=== PATIENT | male | born 2005 | race Caucasian/White ===

== ENCOUNTER 2024-04-23 12:45 | Emergency (ER) | payer OTHER, SELFPAY ==
[2024-04-23 12:54] VITALS: BP 119/65; PULSE 58; RESP 20; TEMP 36.3; O2SAT 100
--- NOTE | 2024-04-23 14:16 | ED.GENADULT ---
HPI - General Adult General Chief complaint: Head Injury Stated complaint: head injury Time Seen by Provider: 04/23/24 14:16 Source: patient Mode of arrival: ambulatory Limitations: no limitations History of Present Illness HPI narrative: This is a 18-year-old male who presents to the ED for chief complaint of concussion like symptoms after hockey injury yesterday. Patient reports that he got hit hard on the left side of his head. States that this caused him to go down to the ground but he did not pass out. Reports that he was able to skate over to the bench intake breather. States that he has had a little bit of headache and nausea but the symptoms are starting to improve today. States he was able to go to work. He would like to get back to practice and playing but has trialed soon for the school team. Denies any new numbness, weakness, neck pain, syncope, vomiting, falls or dizziness. Related Data Home Medications Medication Instructions Recorded Confirmed No Home Medications 08/09/19 08/09/19 Allergies Allergy/AdvReac Type Severity Reaction Status Date / Time No Known Allergies Allergy Verified 08/09/19 16:58 Review of Systems Review of Systems: All systems as dictated in HPI Exam Narrative: GENERAL: Well-appearing, well-nourished, and in no acute distress. HEAD: Normocephalic, atraumatic. EYES: PERRLA and EOMI. ENT: Nares clear, no rhinorrhea or epistaxis. Mucous membranes moist. Oropharynx without tonsillar hypertrophy exudate or other lesions. NECK: Supple. No adenopathy or masses. CHEST: No respiratory distress. Clear to auscultation. No wheezes rales or rhonchi HEART: Regular rate and rhythm. No murmur heard. Normal peripheral pulses. ABDOMEN: Soft, nontender, nondistended, normal active bowel sounds. MSK: Normal range of motion. No edema. SKIN: Warm, dry, no rash. NEURO: Alert and oriented x4. No focal deficits. Coordination intact. Ambulatory without difficulty. PSYCH: Normal mood and affect. Course Vital Signs Vital signs: Vital Signs Temperature 97.4 F L 04/23/24 12:54 Pulse Rate 58 L 04/23/24 12:54 Respiratory Rate 20 04/23/24 12:54 Blood Pressure 119/65 04/23/24 12:54 Pulse Oximetry 100 04/23/24 12:54 Oxygen Delivery Room Air 04/23/24 12:54 Temperature 97.4 F L 04/23/24 12:54 Pulse Rate 58 L 04/23/24 12:54 Respiratory Rate 20 04/23/24 12:54 Blood Pressure 119/65 04/23/24 12:54 Pulse Oximetry 100 04/23/24 12:54 Oxygen Delivery Room Air 04/23/24 12:54 Medical Decision Making MDM Narrative Medical decision making narrative: This is a 18-year-old male who presents to the ED for chief complaint of head injury that occurred at hockey practice yesterday. Vitals are normal. Neurologic exam and physical exam were benign. Nexus criteria for CT scan is grossly negative. No need for advanced imaging at this time. Symptoms are consistent with minor concussion due to head injury. Concussion instructions were discussed. Pt will be discharged in stable condition. Return precautions given and supportive measures discussed. Pt is understanding and agreeable with plan for discharge and follow-up with PCP. NEXUS Head CT Instrument from [employer] on 04/23/2024 All calculations should be rechecked by clinician prior to use RESULT SUMMARY: Low risk of significant intracranial injuries CT not necessary INPUTS: Evidence of significant skull fracture ?> 0 = No Scalp hematoma ?> 0 = No Neurologic deficit ?> 0 = No Altered level of alertness ?> 0 = No Abnormal behavior ?> 0 = No Coagulopathy ?> 0 = No Persistent vomiting ?> 0 = No Age >=5 years ?> 0 = No Vital Signs Vital Signs: Vital Signs Temperature 97.4 F L 04/23/24 12:54 Pulse Rate 58 L 04/23/24 12:54 Respiratory Rate 20 04/23/24 12:54 Blood Pressure 119/65 04/23/24 12:54 Pulse Oximetry 100 04/23/24 12:54 Oxygen Delivery Room Air 04/23/24 12:54
== END 2024-04-23 14:25 | disposition home or self-care (01) ==
LOC: ANHED 14:20
PROVIDERS: Emergency Provider Physician Assistant; PCP Pediatrics
DX: S09.90XA Unspecified injury of head, initial encounter (principal); W22.8XXA Striking against or struck by other objects, initial encounter; Y93.22 Activity, ice hockey
CPT/HCPCS: 99283

== ENCOUNTER 2024-09-19 12:16 | Emergency (ER) | payer OTHER, SELFPAY ==
[2024-09-19 12:24] VITALS: BP 135/76; PULSE 82; RESP 16; TEMP 36.2; O2SAT 99
--- NOTE | 2024-09-19 13:10 | ED_ITS ---
HPI - General Adult General Chief complaint: Wound/Laceration Stated complaint: laceration R. thumb Time Seen by Provider: 09/19/24 12:44 History of Present Illness HPI narrative: 18-year-old male present to the emergency department for evaluation for laceration to his right thumb. Patient reports he dropped an ice skate and tried to catch it and this did result in a laceration to his right thumb. This happened approximately 930 last night. Patient presents to the emergency department with his mother. Related Data Home Medications ?Medication ?Instructions ?Recorded ?Confirmed ?Last Taken ?Type No Home Medications 08/09/19 08/09/19 Unknown History Allergies Allergy/AdvReac Type Severity Reaction Status Date / Time No Known Allergies Allergy Verified 09/19/24 12:17 Review of Systems Review of Systems: All systems reviewed & are unremarkable except as noted in HPI and below Exam Narrative: APPEARANCE: Well appearing, no pain, no distress, well-nourished. HEAD: normocephalic, atraumatic. EYES: PERRLA/EOMI, conjunctivae clear. NOSE: Normal no drainage EARS:TMS clear with good light reflex. THROAT: Pharynx clear, no exudate. NECK: Supple. No adenopathy, no masses. RESPIRATORY: Airway patent, respirations nonlabored. Clear to auscultation bilaterally, no rales, rhonchi, wheezing. CARDIOVASCULAR: Regular rate and rhythm without murmurs rubs or gallops. ABDOMINAL: Soft, nontender, nondistended, normal bowel sounds MUSCULOSKELETAL: Moves all extremities. Strength/ROM intact, No edema, No calf tenderness. NEURO: Alert. Cranial nerves II through XII intact. grossly intact SKIN: avulsion laceration to right thumb Course Vital Signs Vital signs: Vital Signs Temperature 97.2 F L 09/19/24 12:24 Pulse Rate 82 09/19/24 12:24 Respiratory Rate 16 09/19/24 12:24 Blood Pressure 135/76 09/19/24 12:24 Pulse Oximetry 99 09/19/24 12:24 Temperature 97.2 F L 09/19/24 12:24 Pulse Rate 82 09/19/24 12:24 Respiratory Rate 16 09/19/24 12:24 Blood Pressure 135/76 09/19/24 12:24 Pulse Oximetry 99 09/19/24 12:24 Medical Decision Making [facility] Narrative Medical decision making narrative: 18-year-old male present to the emergency department for evaluation for a laceration to his right thumb. Laceration was an avulsion and did not require suture repair. Surgicel and hemostatic dressing was placed. Patient family were updated on the treatment plan and importance for follow-up. All questions concerns were addressed and questions and wound care were addressed. Patient and family are comfortable the plan for discharge and close follow-up. Differential Diagnosis Differential Diagnosis: Tendon injury, laceration, avulsion laceration Vital Signs Vital Signs: Vital Signs Temperature 97.2 F L 09/19/24 12:24 Pulse Rate 82 09/19/24 12:24 Respiratory Rate 16 09/19/24 12:24 Blood Pressure 135/76 09/19/24 12:24 Pulse Oximetry 99 09/19/24 12:24 Temperature 97.2 F L 09/19/24 12:24 Pulse Rate 82 09/19/24 12:24 Respiratory Rate 16 09/19/24 12:24 Blood Pressure 135/76 09/19/24 12:24 Pulse Oximetry 99 09/19/24 12:24 Discharge Plan Discharge Clinical Impression: Avulsion of skin Patient Disposition: Home, Self-Care Condition: Stable Instructions: Antibiotic Form, Skin Avulsion (ED) Additional Instructions: Wound care as directed. Keep the dressing in place for 24 hours. Have close follow-up with your primary care physician. If you have any worsening symptoms and please call or return to the emergency department. Patient Language: Frisian Prescriptions: No Action No Home Medications amoxicillin 875 mg tablet 875 mg PO Q12H Qty: 10 0RF Follow-up/Referrals: PHYSICIAN,DIRECTOR OF OUTREACH [Non-Staff] -
[2024-09-19] MEDS: LIDOCAINE 1% LOCAL INJ 10 ML VIAL INFILTRATE (13:30)
--- OUTSIDE RECORDS SUMMARY | 2024-09-29 00:35 | XMS_ITS | Encounter Summary ---
Author Organization [facility] Address [facility] [facility] [address] Care Team Providers Care Claim Analyst Name Role Phone Marline Brooks MD Primary Care Provider Reason for Visit * PT/OT/ST (Routine) - Closed Specialty Diagnoses / Procedures Referred By Contac t Referred To Contact Occupational Therapy Diagnoses Feeding difficulties and mismanagement feeding difficulties Procedures NE OCCUPATIONAL THERAPY EVALUATION ot Marline Rod MD [address] [place] [address] Belgica Alvarez OT Referral ID Status Reason Start Date Expiration Date Visits Re quested Visits Authorized [id number] Closed 03/13/2012 09/09/2012 1 1 Encounter Details Date Type Department Care Team (Late st Contact Info) Description 03/13/2012 9:59 AM CDT - 03/13/2012 11:59 PM T Hospital Encounter [facility] - OT [address] [place] [address] Mraline Brooks MD [address] [place] [address] Belgica Alvarez OT Discharge Disposition: Home or Self Care Social History Tobacco Use Types Packs/Day Years Used Date Smoking Tobacco: Never Assessed Sex and Gender Information Value Date Recorded Sex Assigned at Not on file Gender Identity Not on file Sexual Orientation Not on file documented as of this encounter Consult Notes * Belgica Arndt, JAQUI - 03/13/2012 11:53 AM CDT Occupational Therapy Assessment Date:03/13/2012 Patient: Juliocesar Gillette Date of : 2005 Chronological Age: 6 y.o. 4 m.o. Current Services Received: Juliocesar is a 6 y.o. male who presents for an occupational therapy evaluation with his mother. He receives no services at school Parental Concerns: Juliocesar has previously been seen by an occupational therapist for sensory concernswhen he was younger. He previously disliked tags in his shirt, difficult with receiving a haircut, messy play and diet. His mother reports these have all resolved with time except his diet. He continues to demonstrate aversion to new or unfamiliar foods.His diet includes pop tarts, toast, hotdogs, pizza (very specific to which kind he will eat), chicken nuggets, red grapes, apples, and daniels. Hismother states that his diet is the most concerning due to him being a growing child requiring more nutritious food than listed above. Cooperation: Age Appropriate Verbal Praise Warm-Up Time Rewards Comments: Juliocesar was cooperative throughout evaluation with encouragement and positive reinforcementfor trying foods. Primary Method of Communication: Verbal Assistive Devices: None Standardized Questionnaires SENSORY PROFILE 3-10 YRS, 11 MOS Factor Factor Raw Score Total Differences Sensory Seeking 72/85 Typical Performance Emotionally Reactive 53/80 Probable Difference Low Endurance/Tone 45/45 Typical Performance Oral Sensory Sensitivity 21/45 Definite Difference Inattention/Distractibility 29/35 Typical Performance Poor Registration 39/40 Typical Performance Sensory Sensitivity 20/20 Typical Performance Sedentary 20/20 Probable Difference Fine Motor/Perceptual 14/15 Typical Performance Sensory Inputs Section Raw Score Total Differences Auditory Processing 31/40 Typical Performance Visual Processing 43/45 Probable Difference Vestibular Processing 52/55 Typical Performance Touch Processing 85/90 Typical Performance Multisensory Processing 33/35 Typical Performance Oral Sensory Processing 34/60 Definite Difference Juliocesar's mother filled out the Sensory Profile which is suggesting that Juliocesar has a definite difference with his oral sensory sensitivity and oral sensory processing. This can make it difficult for Juliocesar to try new foods with a variety of unfamiliar textures. He will often avoid trying these foods by declining them altogether with few attempts to try. Individual occupational therapy sessions can benefit Juliocesar by introducing a variety of new textures in a controlled environment. This can then be transitioned into working on trying new foods at home in his familiar environment. Feeding History: Duration: Juliocesar has had difficulty increasing the variety in his diet for several years. His parents hoped it would be something that he would grow out of but Juliocesar has not demonstrated any progress so far without any intervention. His diet does not include any vegetables and very few fruits. Frequency of Feeding Difficulty: Daily basis at meal times Food Intolerance: No allergies known Oral Motor Skills: Within Functional Limits Feeding Symmetry: Symmetrical Feeding Tone: Normal Tone Behavioral Concerns: Juliocesar consistently replied No, I'm not trying that when offered more familiar foods. No matter what was offered he would reply No I'm not trying that . After some encouragement and positive reinforcement when finished Juliocesar was able to try two bites of pancakes. Interaction with Caregiver: Interacts with caregiver, Listens to Caregiver Play Skills: Age appropriate How has Eating Been Encouraged: Juliocesar's mother reports that they have tried food motivation at end of meal (dessert), but this has had no motivation for Juliocesar. 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 Assessment: Juliocesar was presented with pancakes, eggs and applesauce during his evaluation. He verbally refused saying I don't want any or I'm not trying it which was accurate with mother's description when presented with new foods. This OT motivated Juliocesar with showing him a gross motor room with activities such as rock climbing, basketball, and swings. He was told he could play in this room after he triedsome food on his tray. He verbally refused saying I don't want any or I'm not trying it . Juliocesar was given the option to try one of the foods on his plate and he preferred to try the pancake. He first licked a small bite and then ate it stating that it was Sort of good . This OT provided praise and encouragement to attempt again with a small taste of syrup on the pancake. Juliocesar agreed after 5 minutes to try. He first licked the small bite then placed it in his mouth. He began to cough briefly stating that he didn't like the taste and wanted to spit it out. This OT encouraged Juliocesar to keep it in his mouth and utilize his drink to help him finish the bite. He was able to do this and was rewarded with his activity of choice. This was discussed with Juliocesar's mother who was willing to try the positive reinforcement chart for Juliocesar to try new foods at home. This will be sent along with specific recommendations discussed and evaluation. Self-care:Restrictive food preferences ASD Impression: No Additional Sensory Information:Intense oral/smell behaviors Behavioral Characteristics:Easily frustrated Pragmatic/Social/Play:Within functional limits Fine Motor: Within Functional Limits Motor (Gross/Fine):Within Functional Limits Recommendations Initiate occupational therapy services 60 minutes one time weekly in therapy clinic for increased oral sensory processing. Suggestions for working/playing with your child Offer child whatever foods your family is having. If he/she does not take it that's okay Give opportunities to play with foods Call the therapy office if you have questions Goals: 1. Juliocesar will try one new food per session with less than 3 verbal cues within one month. 2. Juliocesar will try one new food per week at home evidenced by food chart. 3. Juliocesar will request one new food from provided tray during session within one month. 4. Juliocesar will increase a nutritious variety of foods into diet within 2 months. 5. Pt caregivers will demonstrate understanding of home program within one month. See Scanned Document for recommendations Belgica Arndt OTR/L documented in this encounter Miscellaneous Notes * Miscellaneous Scans - Document, Scanned - 03/22/2012 7:39 PM CDT * Miscellaneous Scans - Document, Scanned - 03/21/2012 8:13 AM CDT documented in this encounter Plan of Treatment Not on file documented as of this encounter Visit Diagnoses Diagnosis Feeding problems Feeding difficulties and mismanagement documented in this encounter Care Teams Claim Analyst Relationship Specialty Start Date End Date Marline Brooks MD PCP - General Pediatrics 02/23/12 08/04/20 documented as of this encounter
== END 2024-09-19 13:57 | disposition home or self-care (01) ==
PROVIDERS: Emergency Provider Emergency Medicine
DX: S61.011A Laceration without foreign body of right thumb without damage to nail, initial encounter (principal); W20.8XXA Other cause of strike by thrown, projected or falling object, initial encounter
CPT/HCPCS: 99282; J2003